=== PATIENT | male | born 1960 | race African-American/Black ===

== ENCOUNTER 2018-05-07 01:05 | Emergency (ER) | payer OTHER ==
[~2018-05-07] VITALS: Ht 172.7 cm; Wt 81.6 kg
--- NOTE | 2018-05-07 01:13 | Emergency Room Report ---
History of Present Illness General Chief Complaint: Nausea, Vomiting, and Diarrhea Source: Patient Present Illness HPI Is a 58-year-old male with history of high blood pressure but not on medications. He said he drinks about a fifth of vodka 3-4 times a week. He was drinking tonight. He woke up around midnight feeling nauseous. He has multiple episode vomiting and also diarrhea. He called 911 because he was getting dizzy and lightheaded. He also was vomiting blood that he seen. No longer vomiting. No fever chills. Never had this problem before. Denies any black stool. Pain is epigastric and cramping. Allergies: Coded Allergies: No Known Allergies (Unverified , 05/07/18) Patient History Past Medical History: see triage record, old chart reviewed Past Surgical History: other Pertinent Family History: none Social History: Reports: alcohol use Immunizations: other Reviewed Nursing Documentation: PMH: Agreed; PSxH: Agreed Review of Systems Eye: Denies: eye pain, blurred vision ENT: Denies: ear pain, nose congestion, throat swelling Respiratory: Denies: cough, shortness of breath Cardiovascular: Denies: chest pain, palpitations Gastrointestinal: Reports: abdominal pain, diarrhea, nausea, vomiting, hematemesis Musculoskeletal: Denies: back pain, joint pain Skin: Denies: rash Neurological: Denies: headache, numbness Endocrine: Denies: increased thirst, increased urine Hematologic/Lymphatic: Denies: easy bruising All Other Systems: negative except mentioned in HPI Physical Exam Vital Signs Date Time Temp Pulse Resp B/P (MAP) Pulse Ox O2 Delivery O2 Flow Rate FiO2 05/07/18 00:41 98.2 79 18 162/118 99 Room Air 98.2 vitals with high blood pressure Sp02 EP Interpretation: reviewed, normal General Appearance: well appearing, no apparent distress, alert Head: normocephalic, atraumatic Eyes: bilateral eye PERRL, bilateral eye EOMI ENT: hearing grossly normal, normal pharynx Neck: full range of motion, supple, no meningismus Respiratory: chest non-tender, lungs clear, normal breath sounds Cardiovascular #1: regular rate, rhythm, no murmur Gastrointestinal: normal bowel sounds, non tender, no mass, no organomegaly, no bruit, non-distended Musculoskeletal: back normal, gait/station normal, normal range of motion Psychiatric: mood/affect normal Skin: warm/dry Medical Decision Making Diagnostic Impression: Primary Impression: Hematemesis Qualified Codes: K92.0 - Hematemesis Additional Impressions: Pancreatitis, acute Qualified Codes: K85.90 - Acute pancreatitis without necrosis or infection, unspecified Anemia Qualified Codes: D64.9 - Anemia, unspecified Hypertension Qualified Codes: I10 - Essential (primary) hypertension Alcohol abuse [place] (acute kidney injury) Proteinuria Qualified Codes: R80.9 - Proteinuria, unspecified Acute hypokalemia ER Course History with hematemesis. No active bleeding now. No perforation. Most likely secondary to alcohol abuse and Estephanie-Guillen tear. He does have pancreatitis confirm on the CT scan. No evidence of perforation. No evidence of acute abdomen. We will transfer based on his insurance. I discussed the case with Dr. Lockwood who excepted the patient to [facility]. Lab Results Impression labs with anemia and elevated lipase Rhythm Strip Diag. Results Rhythm Strip Time: 03:34 EP Interpretation: yes Rate: 80 Rhythm: NSR, no PVC's, no ectopy Chest X-Ray Diagnostic Results Chest X-Ray Diagnostic Results : Chest X-Ray Ordered: Yes # of Views/Limited/Complete: 1 View Indication: Chest Pain EP Interpretation: Yes Interpretation: no consolidation, no effusion, no pneumothorax, no acute cardiopulmonary disease Impression: No acute disease Electronically Signed by: Tadeo Gamble MD CT/MRI/US Diagnostic Results CT/MRI/US Diagnostic Results : Imaging Test Ordered: CT abdomen and pelvis Impression Read by radiologist. enlargement of the head and uncinate process of the pancreas. Most likely represent pancreatitis but neoplasm not excluded Last Vital Signs Date Time Temp Pulse Resp B/P (MAP) Pulse Ox O2 Delivery O2 Flow Rate FiO2 05/07/18 00:41 98.2 79 18 162/118 99 Room Air 98.2 Status: improved Disposition: XFER SHT-TRM HOSP Condition: Stable TADEO GAMBLE M.D. May 07, 2018 01:13
[2018-05-07] MEDS ORDERED: Pantoprazole Inj IV ONE (01:15)
[2018-05-07 01:43] VITALS: BP 183/104
[2018-05-07 01:49] LABS: BASOPHILS % (AUTO) 1.4 % (0.0-2.0); EOSINOPHILS % (AUTO) 0.6 % (0.0-3.0); HEMATOCRIT 28.6 % (42.0-52.0); HEMOGLOBIN 10.4 G/DL (14.2-18.0); LYMPHOCYTES % (AUTO) 12.1 % (20.0-45.0); MEAN CORPUSCULAR VOLUME 97 FL (80-99); MONOCYTES % (AUTO) 12.4 % (1.0-10.0); NEUTROPHILS % (AUTO) 73.5 % (45.0-75.0); PLATELET COUNT 172 K/UL (150-450); RED BLOOD COUNT 2.95 M/UL (4.70-6.10); RED CELL DISTRIBUTION WIDTH 12.6 % (11.6-14.8); WHITE BLOOD COUNT 7.2 K/UL (4.8-10.8)
[2018-05-07 01:50] LABS: ANION GAP 17 mmol/L (5-15); BLOOD UREA NITROGEN 30 mg/dL (7-18); CALCIUM 10.1 MG/DL (8.5-10.1); CARBON DIOXIDE 26 MMOL/L (21-32); CHLORIDE 98 MMOL/L (98-107); CREATININE 2.3 MG/DL (0.55-1.30); POTASSIUM 3.2 MMOL/L (3.5-5.1); SODIUM 141 MMOL/L (136-145)
[2018-05-07 01:51] LABS: APPEARANCE,URINE CLEAR; BILIRUBIN, URINE NEGATIVE (NEGATIVE); COLOR,URINE PALE YELLOW; GLUCOSE, URINE (UA) NEGATIVE (NEGATIVE); KETONES,URINE 1+ (NEGATIVE); LEUKOCYTE ESTERASE ,URINE NEGATIVE (NEGATIVE); NITRITE,URINE NEGATIVE (NEGATIVE); PH,URINE 5 (4.5-8.0); PROTEIN,URINE 3+ (NEGATIVE); UROBILINOGEN,URINE NORMAL MG/DL (0.0-1.0)
[2018-05-07 02:00] LABS: ALANINE AMINOTRANSFERASE 64 U/L (12-78); ALBUMIN 4.2 G/DL (3.4-5.0); ALBUMIN/GLOBULIN RATIO 1.1 (1.0-2.7); ALKALINE PHOSPHATASE 104 U/L (46-116); ASPARTATE AMINO TRANSFERASE 109 U/L (15-37); BILIRUBIN,TOTAL 1.2 MG/DL (0.2-1.0)
[2018-05-07 02:02] LABS: BILIRUBIN,DIRECT 0.3 MG/DL (0.0-0.3)
[2018-05-07 02:07] LABS: INR 1.1 (0.9-1.1)
[2018-05-07 02:40] VITALS: BP 177/89
[2018-05-07 05:15] VITALS: BP 163/93
--- NOTE | 2018-05-08 09:47 | Diagnostic Imaging Report ---
Indication: Chest pain Technique: One view of the chest Comparison: none Findings: The lungs and pleural spaces are clear. The heart size is normal. The aorta is tortuous and ectatic. Questionable 8 mm nodule is seen in the left upper lobe, projected over the anterior left third rib. Impression: Possible 8 mm left upper lobe lung nodule. Consider CT for better characterization. This finding was reported to Dr. Kyle or in the emergency room at the time of interpretation No acute process otherwise
--- NOTE | 2018-05-08 09:47 | Diagnostic Imaging Report ---
Indication: Abdominal pain and distention Technique: Spiral acquisitions obtained through the abdomen and pelvis. No oral contrast utilized, per emergency room physician request No IV contrast utilized, per referring physician request.. Multiplanar reconstructions were generated. Total dose length product 550.17 mGycm. CTDIvol(s) 11.12 mGy. Dose reduction achieved using automated exposure control Comparison: None Findings: Lack of enteric contrast limits assessment of the GI tract. There is an indirect left inguinal hernia which contains a small knuckle of small bowel. This does not appear to result in any obstruction or strangulation. The appendix is normal. No evidence of diverticulosis or diverticulitis. No small bowel distention noted. The appendix is normal. No free or loculated intraperitoneal gas or fluid is evident. The distal esophagus is unremarkable. The stomach is unremarkable. The second portion of the duodenum appears to be compressed by an enlarged pancreatic head. Lack of IV contrast limits assessment of the solid organs. The liver is diffusely hypoattenuating, consistent with fatty change. There is a 2.4 cm hypoattenuating mass in segment 3 of the liver. There is a round 17 mm hypoattenuating mass within segment 2 of the liver. There is a 15 mm hypoattenuating mass within segment 8 near the hilum. The gallbladder is nondistended. No biliary ductal dilatation. No definite gallstones are evident. The pancreatic head is diffusely enlarged, and there is some infiltration of the peripancreatic fat immediately surrounding the pancreatic head. A more discrete hypoattenuating 18 mm mass is seen within the pancreatic head, although the degree of pancreatic head enlargement appears to encompass a much larger area than this. There is questionably a second hypoattenuating area in the pancreatic head more inferiorly which measures 10 mm diameter. A large pancreatic head appears to displace the duodenum laterally and narrow it to some extent. No definite encasement of the mesenteric vessels although this is difficult to assess in the absence of IV contrast. No definite peripancreatic lymphadenopathy, although some of the peripancreatic nodes may be contiguous with the pancreatic head mass and therefore obscured. The spleen, adrenals are unremarkable. The kidneys demonstrate bilateral perinephric fat stranding. 15 mm fluid attenuation lesion comes off of the lower pole right kidney, consistent with a benign simple cyst. 10 mm fluid attenuation lesion comes off of the interpolar region of the left kidney. There are also subcentimeter low-attenuation lesions bilaterally. No pelvic mass or adenopathy. No retroperitoneal or mesenteric mass or adenopathy. The included lung bases are clear. The bones demonstrate mild degenerative changes of the lumbar spine. There are degenerative changes of both hips, right greater than left. Impression: Diffuse enlargement of the pancreatic head. Per review of electronic medical record, patient has laboratory evidence of acute pancreatitis, and this is certainly consistent. However, discrete areas of low-attenuation are also seen within the pancreatic head, and the possibility of underlying pancreatic neoplasm should be considered. Follow-up contrast CT and/or MRI is recommended when acute symptoms subside Low-attenuation hepatic lesions. These are nonspecific. Given above findings, possibility of metastatic neoplasm should certainly be considered Small nonobstructive left inguinal direct hernia Nonspecific bilateral perinephric fat stranding Bilateral renal cysts. Bilateral subcentimeter low-attenuation renal lesions, too small to characterize, most likely benign simple cysts. No further follow-up necessary Degenerative changes of the lumbar spine and hips This agrees with the preliminary interpretation provided overnight by [facility] teleradiology [facility]. The CT scanner at [facility] is accredited by the [employer] and the scans are performed using protocols designed to limit radiation exposure to as low as reasonably achievable to attain images of sufficient resolution adequate for diagnostic evaluation.
== END 2018-05-07 05:18 | disposition short-term general hospital (02) ==
LOC: EDBD 01:05 → EMR 01:32
DX: K92.0 Hematemesis (principal); K85.90 Acute pancreatitis without necrosis or infection, unspecified; D64.9 Anemia, unspecified; I10 Essential (primary) hypertension; R80.9 Proteinuria, unspecified; R07.9 Chest pain, unspecified; E87.6 Hypokalemia; N17.9 Acute kidney failure, unspecified; F17.200 Nicotine dependence, unspecified, uncomplicated; R19.7 Diarrhea, unspecified; Z72.89 Other problems related to lifestyle
CPT/HCPCS: 36415; 71045; 74176; 80053; 80307; 80329; 81003; 82248; 83690; 85025; 85610; 85730; 96361; 96374; 96375; 96376; 99285; C9113; J0360; J2405